=== PATIENT | female | born 1975 | race Caucasian/White ===

== ENCOUNTER 2019-09-10 08:45 | Emergency (ER) | payer MEDICAID ==
[~2019-09-10] VITALS: Ht 167.6 cm; Wt 96.8 kg
[2019-09-10 08:55] VITALS: BP 148/93
[2019-09-10] MEDS ORDERED: TETanus/Pertussis (Acell)/Diphther VAC/PF (Tdap-Adult) 0.5ml syringe IMVAC ONE (10:25)
[2019-09-10] MEDS ORDERED: CEPH500C5 PO (11:09)
[2019-09-10] MEDS ORDERED: LIDOcaine 1% w/EPI 1:100,000 30ml vial (MDV) ONE (18:00)
== END 2019-09-10 11:17 | disposition home or self-care (01) ==
LOC: ER 08:45
DX: S60.456A Superficial foreign body of right little finger, initial encounter (principal); L03.011 Cellulitis of right finger; W22.8XXA Striking against or struck by other objects, initial encounter; Y93.89 Activity, other specified; Y92.89 Other specified places as the place of occurrence of the external cause; Y99.8 Other external cause status
CPT/HCPCS: 10120; 90471; 90715; 99285

== ENCOUNTER 2022-02-26 14:00 | Emergency (ER) | payer MEDICAID ==
[~2022-02-26] VITALS: Ht 162.6 cm; Wt 100.0 kg
[2022-02-26 14:02] VITALS: BP 145/87
[2022-02-26] MEDS ORDERED: cyclobenzaprine 10mg tablet PO ONE (15:35)
[2022-02-26] MEDS ORDERED: ketorolac tromethamine 15mg/ml inj. IM ONE (15:35)
[2022-02-26] MEDS ORDERED: IBUP-1986 PO (15:36)
[2022-02-26] MEDS ORDERED: CYCL-1 PO (15:36)
[2022-02-26] MEDS ORDERED: PRED10TA PO (15:36)
[2022-02-26] MEDS ORDERED: ketorolac trometh inj. 60 MG/2 ML VIAL IM ONE (15:45)
--- NOTE | 2022-02-26 15:55 | NUR ---
PO MED GIVEN IM GIVEN
== END 2022-02-26 16:21 | disposition home or self-care (01) ==
LOC: ER 14:00
DX: S29.019A Strain of muscle and tendon of unspecified wall of thorax, initial encounter (principal); G89.29 Other chronic pain; M54.41 Lumbago with sciatica, right side; Z79.899 Other long term (current) drug therapy; X58.XXXA Exposure to other specified factors, initial encounter; Y93.89 Activity, other specified; Y92.89 Other specified places as the place of occurrence of the external cause; Y99.8 Other external cause status
CPT/HCPCS: 96372; 99283; J1885